=== PATIENT | male | born 1930 | race Caucasian/White ===

== ENCOUNTER 2018-05-31 09:52 | Outpatient (CLI) | payer MEDICARE, OTHER ==
[~2018-05-31] VITALS: Ht 175.3 cm; Wt 90.7 kg
[2018-05-31] MEDS ORDERED: FURO20TA4 PO (10:53)
[2018-05-31] MEDS ORDERED: LOSA100T57 PO (10:53)
[2018-05-31] MEDS ORDERED: AMLO-314 PO (10:53)
[2018-05-31] MEDS ORDERED: GLYB5TAB7 PO (10:53)
[2018-05-31] MEDS ORDERED: APIX5TAB3 PO (10:53)
[2018-05-31 11:48] LABS: BASOPHILS % (AUTO) 0.4 % (0-1); EOSINOPHILS # (AUTO) 0.3 X10'3 (0-0.9); EOSINOPHILS % (AUTO) 2.7 % (0-6); LYMPHOCYTES # (AUTO) 1.6 X10'3 (1.1-4.8); LYMPHOCYTES % (AUTO) 17.2 % (21-51); MEAN CORPUSCULAR HEMOGLOBIN 31.9 PG (27.0-31.0); MEAN CORPUSCULAR HGB CONC 33.7 g/dL (33.0-36.5); MEAN CORPUSCULAR VOLUME 94.6 FL (78-98); MEAN PLATELET VOLUME 7.3 FL (7.4-10.4); MONOCYTES # (AUTO) 0.9 X10'3 (0-0.9); MONOCYTES % (AUTO) 9.8 % (2-12); NEUTROPHILS # (AUTO) 6.6 X10'3 (1.8-7.7); NEUTROPHILS % (AUTO) 69.9 % (42-75); PRE OP HEMATOCRIT 41.6 % (42.0-52.0); PRE OP PLATELET COUNT 292 X10'3 (140-440); RED CELL DISTRIBUTION WIDTH 14.1 % (11.5-14.5)
[2018-05-31 12:03] LABS: HEMOGLOBIN A1C 8.1 % (4.5-6.2); PRE OP INR 1.1 INR; PRE OP PROTIME 10.9 SECONDS (9.0-12.0)
[2018-05-31 12:05] LABS: ALBUMIN 3.5 G/DL (3.4-5.0); ALBUMIN/GLOBULIN RATIO 0.8 (1.1-1.5); ALKALINE PHOSPHATASE 90 IU/L (46-116); BLOOD UREA NITROGEN 25 MG/DL (7-18); BUN/CREATININE RATIO 18.1 (5.4-32.0); CHLORIDE 98 MMOL/L (99-107); CREATININE 1.38 MG/DL (0.60-1.10); PRE OP ALT 32 U/L (30-65); PRE OP ANION GAP 10 (8-16); PRE OP AST 25 U/L (10-37); PRE OP BILIRUB, TOTAL 0.8 MG/DL (0.0-1.0); PRE OP GLUCOSE 182 MG/DL (70-104); PRE OP POTASSIUM 4.6 MMOL/L (3.4-5.1); PRE OP SODIUM 133 MMOL/L (135-145); TOTAL CARBON DIOXIDE 25.5 MMOL/L (24-32); TOTAL PROTEIN 7.8 G/DL (6.4-8.2); eGFR 49 ML/MIN
[2018-06-02] MEDS ORDERED: ringers solution, lacted 1,000 ML IV SCH (05:00)
[2018-06-02] MEDS ORDERED: famotidine 20mg tablet PO ONE ×2 (05:30→11:20)
[2018-06-02] MEDS ORDERED: cefazolin/dext.iso 2gm/100 ML IV ONE (05:30)
[2018-06-02] MEDS ORDERED: cefazolin/dext.iso 2gm/50ml 50 ML IV ONE (05:30)
[2018-06-03] MEDS ORDERED: famotidine 20mg tablet PO ONE (05:00)
[2018-06-03] MEDS ORDERED: cefazolin/dext.iso 2gm/50ml 50 ML IV ONE (05:00)
[2018-06-03] MEDS ORDERED: ringers solution, lacted 1,000 ML IV SCH (05:00)
== END 2018-05-31 23:59 | disposition home or self-care (01) ==
LOC: PRE-OP 09:52 → EDSTATUS 06-02 13:45
PROVIDERS: ATTEND Surgery
DX: Z01.818 Encounter for other preprocedural examination (principal); R94.31 Abnormal electrocardiogram [ECG] [EKG]; I65.22 Occlusion and stenosis of left carotid artery; I48.91 Unspecified atrial fibrillation; I10 Essential (primary) hypertension; E11.9 Type 2 diabetes mellitus without complications; M85.89 Other specified disorders of bone density and structure, multiple sites; Z87.891 Personal history of nicotine dependence
CPT/HCPCS: 36415; 71046; 80053; 83036; 85025; 85610; 85730; 86885; 86900; 86901; 87070; 93005; J0690; J7120

== ENCOUNTER 2018-06-07 14:12 | Inpatient (IN) | payer MEDICARE, OTHER | END 2018-06-09 13:20 | disposition home or self-care (01) | LOC: PAS IN 14:12 → CICU 2S 22:39 → SUR 3N 06-08 19:29 | PROC: 03CK0ZZ Extirpation of Matter from Right Internal Carotid Artery, Open Approach (ICD-10-PCS; principal; 2018-06-07 20:10) | DX: I65.21 Occlusion and stenosis of right carotid artery (principal) ==

== ENCOUNTER 2019-02-02 12:47 | Outpatient (CLI) | payer MEDICARE, OTHER ==
[~2019-02-02 12:47] MED LIST: AMLO-314 PO; APIX5TAB3 PO; FURO20TA4 PO; GLYB5TAB7 PO; LOSA100T57 PO
== END 2019-02-02 23:59 | disposition home or self-care (01) ==
LOC: RAD 12:47
PROVIDERS: ATTEND Surgery
DX: R13.12 Dysphagia, oropharyngeal phase (principal); K21.9 Gastro-esophageal reflux disease without esophagitis; R47.1 Dysarthria and anarthria; I10 Essential (primary) hypertension; E11.9 Type 2 diabetes mellitus without complications; Z87.891 Personal history of nicotine dependence
CPT/HCPCS: 74230